=== PATIENT | female | born 1990 | race Caucasian/White ===

== ENCOUNTER 2016-06-17 07:52 | Emergency (ER) | payer MEDICAID ==
[~2016-06-17] VITALS: Ht 152.4 cm; Wt 71.3 kg
[~2016-06-17 07:52] MED LIST: PRENATAL VITS.; [UNRECOGNIZED DRUG - REMARK]
[2016-06-17 07:58] VITALS: BP 125/96
--- NOTE | 2016-06-17 08:02 | NUR ---
Patient ambulated to bed 5 at this time.
--- NOTE | 2016-06-17 08:05 | NUR ---
25F BIB SELF C/O COUGH W/ FEVER X FRIDAY NIGHT. PT AFEBRILE AT THIS TIME. TEMP 98.2; . DENIES N/V/D; SKIN IS PINK/WARM/DRY; AAOX4 WITH EVEN AND STEADY GAIT; LUNGS CLEAR BL; HR EVEN AND REGULAR; PT DENIES ANY CP, OR SOB AT THIS TIME; PATIENT STATES BODY ACHE WITH BACK PAIN OF 7/10 AT THIS TIME; VSS; PATIENT POSITIONED FOR COMFORT; HOB ELEVATED; BEDRAILS UP X2; BED DOWN. ER MD MADE AWARE OF PT STATUS.
--- NOTE | 2016-06-17 08:21 | NUR ---
DR CONDE ASSESSING THE PT AT BEDSIDE
[2016-06-17 08:49] VITALS: BP 119/67
--- NOTE | 2016-06-17 08:49 | NUR ---
Patient discharged with v/s stable. Written and verbal after care instructions given and explained. Patient alert, oriented and verbalized understanding of instructions. Ambulatory with steady gait. All questions addressed prior to discharge. ID band removed. Patient advised to follow up with PMD. Rx of GUAIATUSSIN, ZITHROMAX, TYLENOL given. Patient educated on indication of medication including possible reaction and side effects. Opportunity to ask questions provided and answered.
== END 2016-06-17 08:49 | disposition home or self-care (01) ==
LOC: MED 07:52
DX: J20.9 Acute bronchitis, unspecified (principal)

== ENCOUNTER 2016-06-19 13:16 | Emergency (ER) | payer MEDICAID ==
[~2016-06-19] VITALS: Ht 152.4 cm; Wt 71.2 kg
[2016-06-19 13:29] VITALS: BP 115/61
--- NOTE | 2016-06-19 16:20 | NUR ---
PT AMBULATED TO BED 8.
--- NOTE | 2016-06-19 16:22 | NUR ---
25F BIB SELF C/O VOMITING X 2 HOURS PRIOR TO ARRIVAL TO ER; PT STATES HAS BEEN CONTINUOUSLY VOMITING FOR 1 HOUR, BUT DENIES DIARRHEA AT THIS TIME; ABDOMEN SOFT, NON-TENDER, ACTIVE BOWEL SOUNDS X 4 QUADRANTS; PT C/O ACHING, MID-ABDOMINAL PAIN, NON-RADIATING, 8/10 AT THIS TIME; PT STATES " I THINK THE PAIN IS FROM THE VOMITING"; A&OX4, BL LUNG SOUNDS CLEAR, RR EVEN/UNLABORED, SKIN IS WARM/DRY/INTACT AT THIS TIME; STEADY GAIT; PT RESTING IN BED W/ HOB ELEVATED AND IN LOWEST POSITION; POSITIONED FOR COMFORT; ER MD MADE AWARE OF STATUS. WILL CONTINUE TO MONITOR.
[2016-06-19 17:42] VITALS: BP 113/67
--- NOTE | 2016-06-19 17:42 | NUR ---
Patient discharged with v/s stable. Written and verbal after care instructions given and explained. Patient alert, oriented and verbalized understanding of instructions. Ambulatory with steady gait. All questions addressed prior to discharge. ID band removed. Patient advised to follow up with PMD. Rx of ZOFRAN 4MG TAB given. Patient educated on indication of medication including possible reaction and side effects. Opportunity to ask questions provided and answered.
== END 2016-06-19 17:42 | disposition home or self-care (01) ==
LOC: MED 13:16
DX: K52.9 Noninfective gastroenteritis and colitis, unspecified (principal)
CPT/HCPCS: 81025; 99283

== ENCOUNTER 2016-09-26 23:20 | Emergency (ER) | payer MEDICAID ==
[~2016-09-26] VITALS: Ht 154.9 cm; Wt 67.3 kg
[2016-09-27 00:31] VITALS: BP 127/60
--- NOTE | 2016-09-27 05:05 | NUR ---
PATIENT LEFT WITHOUT BEING SEEN BY DR. GUTIERREZ. NO FURTHER CARE PROVIDED FOR PATIENT.
== END 2016-09-27 05:05 | disposition left against medical advice (07) ==
LOC: MED 23:20
DX: R07.0 Pain in throat (principal); R50.9 Fever, unspecified; Z53.21 Procedure and treatment not carried out due to patient leaving prior to being seen by health care provider

== ENCOUNTER 2017-11-03 17:13 | Emergency (ER) | payer MEDICAID ==
[~2017-11-03] VITALS: Ht 154.9 cm; Wt 69.2 kg
[2017-11-03 17:29] VITALS: BP 121/92
[2017-11-03] MEDS: ONDANSETRON 4 MG ODT PO ONE (18:21)
[2017-11-03] MEDS: KETOROLAC 30 MG/ML VIAL IM ONE (18:22)
[2017-11-03] MEDS: ONDANSETRON 4 MG TAB PO ONE (19:19)
[2017-11-03 19:50] VITALS: BP 117/86
== END 2017-11-03 19:50 | disposition home or self-care (01) ==
LOC: MED 17:13
DX: S39.012A Strain of muscle, fascia and tendon of lower back, initial encounter (principal); X58.XXXA Exposure to other specified factors, initial encounter; Y93.89 Activity, other specified; Y92.89 Other specified places as the place of occurrence of the external cause; Y99.8 Other external cause status
CPT/HCPCS: 81002; 81025; 96372; 99283; J1885; Q0162; S0119

== ENCOUNTER 2018-08-21 11:20 | Emergency (ER) | payer SELFPAY ==
[~2018-08-21] VITALS: Ht 154.9 cm; Wt 75.4 kg
[2018-08-21 11:24] VITALS: BP 140/60
--- NOTE | 2018-08-21 11:30 | NUR ---
PT C/O OF LOWER BACK PAIN WITH BURNING SENSATION, 8/10 SINCE THIS MORNING. STATES TO HAVE BURNING SENSATION . FELT SLIGHT DIZZY WHILE DRIVING BACK TO HOME. FELT NAUSEATED THIS AM. URINE SAMPLE OBTAINED. PT AOX4. WILL CONTINUE TO MONITOR PT.
--- NOTE | 2018-08-21 11:56 | NUR ---
Dr. Mejia evaluating patient at bedside.
[2018-08-21] MEDS ORDERED: traMADol 50 MG TAB PO ONE (12:00)
[2018-08-21] MEDS ORDERED: KETOROLAC 60 MG/2 ML VIAL IM ONE (12:00)
--- NOTE | 2018-08-21 13:09 | NUR ---
Patient discharged with v/s stable. Written and verbal after care instructions given and explained. Patient alert, oriented and verbalized understanding of instructions. Ambulatory with steady gait. All questions addressed prior to discharge. ID band removed. Patient advised to follow up with PMD. Rx of VOLTAREN 75MG given. Patient educated on indication of medication including possible reaction and side effects. Opportunity to ask questions provided and answered.
[2018-08-21 13:10] VITALS: BP 132/82
[2018-08-21 13:45] LABS: APPEARANCE,URINE CLEAR (CLEAR); BILIRUBIN,URINE NEGATIVE (NEGATIVE); BLOOD, URINE NEGATIVE (NEGATIVE); COLOR,URINE YELLOW (YELLOW); LEUKOCYTE ESTERASE ,URINE NEGATIVE (NEGATIVE); NITRITE, URINE NEGATIVE (NEGATIVE); PH,URINE 7.5 (5.0-9.0); UGLUCOSE NEGATIVE (NEGATIVE)
[2018-08-21 13:50] LABS: BARBITURATE, URINE NEG. ng/ml (NEG <=200); BENZODIAZEPINE, URINE NEG. ng/mL (NEG <=200); CANNABINOID, URINE NEG. ng/mL (NEG <=50); COCAINE, URINE NEG. ng/mL (NEG <=300); OPIATE, URINE NEG. ng/mL (NEG <=2000); PHENCYCLIDINE SCREEN,URINE NEG. ng/mL (NEG <=25)
== END 2018-08-21 13:09 | disposition home or self-care (01) ==
LOC: MED 11:20
DX: S39.012A Strain of muscle, fascia and tendon of lower back, initial encounter (principal); X58.XXXA Exposure to other specified factors, initial encounter; Y93.89 Activity, other specified; Y92.89 Other specified places as the place of occurrence of the external cause; Y99.8 Other external cause status
CPT/HCPCS: 80305; 81003; 81025; 96372; 99283; J1885

== ENCOUNTER 2018-11-25 22:19 | Emergency (ER) | payer MEDICAID ==
[~2018-11-25] VITALS: Ht 154.9 cm; Wt 74.8 kg
[2018-11-25 22:39] VITALS: BP 120/62
[2018-11-26] MEDS: KETOROLAC 30 MG/ML VIAL IM ONE (00:32)
[2018-11-26 01:05] VITALS: BP 120/62
== END 2018-11-26 01:05 | disposition home or self-care (01) ==
LOC: MED 22:19
DX: S83.91XA Sprain of unspecified site of right knee, initial encounter (principal); X58.XXXA Exposure to other specified factors, initial encounter; Y93.B9 Activity, other involving muscle strengthening exercises; Y92.39 Other specified sports and athletic area as the place of occurrence of the external cause; Y99.8 Other external cause status
CPT/HCPCS: 73562; 96372; 99283; J1885

== ENCOUNTER 2018-12-01 10:58 | Emergency (ER) | payer MEDICAID ==
[~2018-12-01] VITALS: Ht 154.9 cm; Wt 75.1 kg
[2018-12-01 11:05] VITALS: BP 106/62
--- NOTE | 2018-12-01 11:11 | NUR ---
Patient ambulated to bed 8. RN evaluating patient at bedside.
--- NOTE | 2018-12-01 11:14 | NUR ---
intermittent right knee pain x 1 month. pain 09/16. pt was seen in our ER 11/25/2018 and dx knee sprain. patient states she finished pain prescription. ambulatory with a mild limp. +rom with increased pain. cap refill < 3 seconds. +pedal pulse. vss. aa0x4. bed is down,locked, bed rail x 1, ermd to see pt. hx--denies rx---none
--- NOTE | 2018-12-01 11:37 | NUR ---
Dr. Ho evaluating patient at bedside.
--- NOTE | 2018-12-01 12:13 | NUR ---
r knee immobilizer applied by nohemi emt. +pedal pulse.
[2018-12-01 12:16] VITALS: BP 108/63
--- NOTE | 2018-12-01 12:16 | NUR ---
Patient discharged with v/s stable. Written and verbal after care instructions given and explained. Patient verbalized understanding. Ambulatory with crutches. All questions addressed prior to discharge. Advised to follow up with PMD. 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
== END 2018-12-01 12:16 | disposition home or self-care (01) ==
LOC: MED 10:58
DX: S83.91XA Sprain of unspecified site of right knee, initial encounter (principal); W94.29XA Exposure to other rapid changes in air pressure during ascent, initial encounter; Y93.89 Activity, other specified; Y92.89 Other specified places as the place of occurrence of the external cause; Y99.8 Other external cause status
CPT/HCPCS: 29505; 99283

== ENCOUNTER 2019-02-07 23:46 | Emergency (ER) | payer MEDICAID ==
[~2019-02-07] VITALS: Ht 154.9 cm; Wt 72.6 kg
[2019-02-07 23:55] VITALS: BP 116/60
--- NOTE | 2019-02-07 23:55 | NUR ---
TO BED # 09 AMBULATORY
--- NOTE | 2019-02-08 00:15 | NUR ---
28 Y/O FEMALE PRESENTS TO ED, C/O LOWER ABDOMINAL PAIN 10/17. PT STATES PAIN STARTED 4 DAYS AGO. BS ACTIVE X4 QUADRANTS. PT DENIES ANY N/V/D. PT DENIES ANY PAIN VOIDING. PT TOOK ADVIL YESTERDAY WITH SOME RELIEF. PT STABLE CONDITION. WILL CONTINUE TO MONITOR.
--- NOTE | 2019-02-08 00:23 | NUR ---
Dr. Lindsay examining patient.
[2019-02-08] MEDS ORDERED: KETOROLAC 60 MG/2 ML VIAL IM ONE (00:30)
--- NOTE | 2019-02-08 01:04 | NUR ---
Ultrasound at bedside.
[2019-02-08 02:48] VITALS: BP 116/60
--- NOTE | 2019-02-08 02:48 | NUR ---
PT DISCHARGED WITH PAPERWORK. RX TRAMADOL, MOTRIN FOR PAIN. EDUCATED PT REGARDING MEDICATIONS AND S/E. EDUCATED PT REGARDING D/C DIAGNOSIS AND INSTRUCTIONS. PT VERBALIZED UNDERSTANDING OF TEACHING. TOLD PT TO FOLLOW UP WITH PCP AND WHEN TO RETURN TO ED. PT AT STABLE CONDITION, STATES RELIEF FROM PAIN. ALL QUESTIONS ANSWERED.
== END 2019-02-08 02:48 | disposition home or self-care (01) ==
LOC: MED 23:46
DX: R10.2 Pelvic and perineal pain (principal)
CPT/HCPCS: 76856; 81025; 96372; 99284; J1885; Q0092

== ENCOUNTER 2019-02-16 17:07 | Emergency (ER) | payer MEDICAID ==
[~2019-02-16] VITALS: Ht 154.9 cm; Wt 86.2 kg
[2019-02-16 17:14] VITALS: BP 137/52
--- NOTE | 2019-02-16 17:20 | NUR ---
Patient ambulated to bed 4. RN evaluating patient at bedside.
--- NOTE | 2019-02-16 17:23 | NUR ---
Note natalianorbert in EDM - 02/16/19 at 1726 by MEDOF 28 Y/O FEMALE PRESENTING WITH C/C OF ABDOMINAL PAIN X2 DAYS ON JIMMY MCINTOSH 10/17. PT UNABLE TO SIT AT 45 DEGREES ON [facility] DUE TO PAIN RADIATING TO THE UPPER CHEST. PT IN 90 DEGREES IN RNEY. PT NKA. NO MEDICAL HX. NO RX. NO N/V/D. SIDE RAIL X1.
--- NOTE | 2019-02-16 17:23 | NUR ---
28 Y/O FEMALE PRESENTING WITH C/C OF ABDOMINAL PAIN X2 DAYS ON RUQ, [place] 10/17. PT UNABLE TO SIT AT 45 DEGREES ON GURNEY DUE TO PAIN RADIATING TO THE UPPER CHEST. PT IN 90 DEGREES IN GURNEY. PT NKA. NO MEDICAL HX. NO RX. NO N/V/D. SIDE RAIL X1.
--- NOTE | 2019-02-16 17:27 | NUR ---
DR MCGINNIS AT BEDSIDE
[2019-02-16] MEDS ORDERED: KETOROLAC 60 MG/2 ML VIAL IM ONE (17:30)
--- NOTE | 2019-02-16 17:35 | NUR ---
ultrasound at bedside
--- NOTE | 2019-02-16 17:57 | NUR ---
LAB AT BEDSIDE
[2019-02-16 18:23] LABS: ANION GAP 15.2 (8-16); CARBON DIOXIDE 27.2 mmol/L (21-32); CREATININE 0.8 mg/dL (0.6-1.3); POTASSIUM 3.4 mmol/L (3.5-5.1)
[2019-02-16 18:30] LABS: ALBUMIN 3.6 g/dL (3.4-5.0); BASOPHILS % (AUTO) 0.3 % (0.0-2.0); EOSINOPHILS # (AUTO) 0.1 K/uL (0-0.4); EOSINOPHILS % (AUTO) 1.2 % (0.0-4.0); HEMATOCRIT 35.3 % (36-48); LYMPHOCYTES # (AUTO) 1.4 K/uL (2.5-16.5); LYMPHOCYTES % (AUTO) 17.1 % (20.5-51.1); MEAN CORPUSCULAR HEMOGLOBIN 28 pg (27-31); MEAN CORPUSCULAR HGB CONC 34 g/dL (33-37); MEAN CORPUSCULAR VOLUME 83.1 fL (80-94); MONOCYTES # (AUTO) 0.5 K/uL (0.8-1.0); MONOCYTES % (AUTO) 5.7 % (1.7-9.3); NEUTROPHILS # (AUTO) 6.4 K/uL (1.8-7.7); NEUTROPHILS % (AUTO) 75.7 % (42.2-75.2); PLATELET COUNT (AUTO) 365 K/uL (140-450); RED BLOOD CELL COUNT(AUTO) 4.25 MIL/uL (4.20-5.40); RED CELL DISTRIBUTION WIDTH 13.2 % (11.6-13.7); TOTAL BILIRUBIN 0.2 mg/dL (0.0-1.0); WHITE BLOOD COUNT (AUTO) 8.4 K/uL (4.8-10.8)
--- NOTE | 2019-02-16 18:35 | NUR ---
PT RESTING IN BED, FAMILY AT BEDSIDE
[2019-02-16 18:44] VITALS: BP 130/60
--- NOTE | 2019-02-16 18:45 | NUR ---
Patient discharged with v/s stable. Written and verbal after care instructions given and explained. Patient alert, oriented and verbalized understanding of instructions. Ambulatory with steady gait. All questions addressed prior to discharge. ID band removed. Patient advised to follow up with PMD. Rx of NORCO, ZANTAC, & IBUPROFEN given. Patient educated on indication of medication including possible reaction and side effects. Opportunity to ask questions provided and answered.
== END 2019-02-16 18:45 | disposition home or self-care (01) ==
LOC: MED 17:07
DX: R10.11 Right upper quadrant pain (principal)
CPT/HCPCS: 36415; 76705; 80053; 83690; 85025; 96372; 99284; J1885; Q0092

== ENCOUNTER 2021-05-12 05:00 | Emergency (ER) | payer MEDICAID ==
[~2021-05-12] VITALS: Ht 154.9 cm; Wt 81.6 kg
[2021-05-12 05:05] VITALS: BP 124/42
--- NOTE | 2021-05-12 05:11 | NUR ---
TO ROOM FROM TRIAGE
--- NOTE | 2021-05-12 05:30 | NUR ---
PT WENT TO CT.
[2021-05-12] MEDS ORDERED: MELO-174 PO (06:59)
[2021-05-12 07:01] VITALS: BP 115/64
--- NOTE | 2021-05-12 07:05 | NUR ---
DR SALAS AT BEDSIDE EXPLAINING CT RESULTS TO PT.
--- NOTE | 2021-05-12 07:16 | NUR ---
Patient discharged with v/s stable. Written and verbal after care instructions given and explained. Patient alert, oriented and verbalized understanding of instructions. Ambulatory with steady gait. All questions addressed prior to discharge. ID band removed. Patient advised to follow up with PMD. Rx of MELOXICAM given. Patient educated on indication of medication including possible reaction and side effects. Opportunity to ask questions provided and answered.
== END 2021-05-12 07:16 | disposition home or self-care (01) ==
LOC: MED 05:00
DX: M50.122 Cervical disc disorder at C5-C6 level with radiculopathy (principal)
CPT/HCPCS: 72125; 99284

== ENCOUNTER 2021-09-15 11:07 | Emergency (ER) | payer MEDICAID ==
[~2021-09-15] VITALS: Ht 152.4 cm; Wt 87.1 kg
[~2021-09-15 11:07] MED LIST changes: +MELO-174 PO; -PRENATAL VITS.; -[UNRECOGNIZED DRUG - REMARK]
[2021-09-15 11:22] VITALS: BP_SYST 140; BP_SYST 85; BP_DIAS 85
--- NOTE | 2021-09-15 11:27 | NUR ---
PT AMB TO BED 7.
[2021-09-15] MEDS ORDERED: KETOROLAC 60 MG/2 ML VIAL IM ONE ×2 (11:35→12:42)
--- NOTE | 2021-09-15 11:51 | NUR ---
IMAGING AT BEDSIDE
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
--- NOTE | 2021-09-15 12:30 | NUR ---
ER AT BEDSIDE
[2021-09-15] MEDS ORDERED: IBUP-2213 PO (12:39)
[2021-09-15 12:55] VITALS: BP 105/70
--- NOTE | 2021-09-15 12:55 | NUR ---
PER MID LEVEL, PT R WRIST WRAPPED WITH VELCRO WRAP. PT TOLERATED SPLINT. + CMS AFTER APPLICATION.
--- NOTE | 2021-09-15 12:56 | NUR ---
Patient discharged with v/s stable. Written and verbal after care instructions given and explained. Patient verbalized understanding. Ambulatory with steady gait. All questions addressed prior to discharge. Advised to follow up with PMD.
== END 2021-09-15 12:55 | disposition home or self-care (01) ==
LOC: MED 11:07
DX: S63.91XA Sprain of unspecified part of right wrist and hand, initial encounter (principal); R03.0 Elevated blood-pressure reading, without diagnosis of hypertension; Z79.899 Other long term (current) drug therapy; W22.8XXA Striking against or struck by other objects, initial encounter; Y93.89 Activity, other specified; Y92.89 Other specified places as the place of occurrence of the external cause; Y99.8 Other external cause status
CPT/HCPCS: 29125; 73130; 96372; 99283; J1885; Q0092